=== PATIENT | male | born 1940 | race Hispanic/Latino ===

== ENCOUNTER 2019-12-06 14:00 | Outpatient (CLI) | payer MEDICARE, MEDICAID ==
--- NOTE | 2019-12-06 14:28 | ULT ---
ULTRASOUND DOPPLER DUPLEX VENOUS LEFT LOWER EXTREMITY: DATE: 12/06/2019 HISTORY: Left lower extremity pain and swelling in 79-year-old male TECHNIQUE: Grayscale, color-flow, and spectral analysis, of major veins of left lower extremity. FINDINGS: There is demonstration of blood flow with normal compressibility, of the left common femoral, profund a femoral, greater saphenous, femoral, popliteal, and posterior tibial, veins. There is edema in the soft tissues of the distal calf and ankle. IMPRESSION: 1. Soft tissue edema at distal left leg. 2. No deep venous thrombosis of left lower extremity.
== END 2019-12-06 14:01 | disposition home or self-care (01) ==
LOC: BICULT 14:00
PROVIDERS: ATTEND Family Medicine
DX: M79.605 Pain in left leg (principal); M79.89 Other specified soft tissue disorders
CPT/HCPCS: 36415; 80053; 84550; 85025; 86140

== ENCOUNTER 2020-03-29 11:35 | Inpatient (IN) | payer MEDICARE, MEDICAID ==
[2020-03-29 12:50] LABS: Hemoglobin 15.4 g/dL (14.0-18.0); Mean Corpuscular HGB CONC 33.7 g/dL (32.0-36.0); Mean Corpuscular Volume 97.8 fL (78.0-98.0); Mean Platelet Volume 7.6 fL (7.4-10.4); Platelet Count 129 thou/uL (130-400); RBC Distribution Width 12.5 % (11.5-14.5); Red Blood Cell (RBC) Count 4.66 mill/uL (4.70-6.10); White Blood Cell (WBC) Count 5.1 thou/uL (4.8-10.8)
[2020-03-29] MEDS ORDERED: Morphine 4 MG/ML VIAL ONE (12:54)
[2020-03-29] MEDS ORDERED: Ondansetron PF 4 MG/2 ML Vial ONE (12:54)
[2020-03-29 13:12] LABS: ALT (SGPT) 295 U/L (8-55); AST (SGOT) 359 U/L (5-34); Alkaline Phosphatase 124 U/L (40-110); Anion Gap 15 mmol/L (10-20); BUN (Urea Nitrogen) 19 mg/dL (8.4-25.7); Bilirubin, Total 2.6 mg/dL (0.2-1.2); Calc. Creatinine Clearance 0 mL/min (70-130); Calcium 8.3 mg/dL (7.8-10.44); Carbon Dioxide 24 mmol/L (23-31); Chloride 102 mmol/L (98-107); Globulin 3.4 g/dL (2.4-3.5); Glucose 121 mg/dL (83-110); Potassium 4.4 mmol/L (3.5-5.1); Protein, Total 7.4 g/dL (5.8-8.1); Sodium 137 mmol/L (136-145)
[2020-03-29 13:21] LABS: Band 21 % (5-11); Lymphocytes 11 % (21-51); MDiff Complete? YES; Monocytes 19 % (0-10); Neutrophil 48 % (42-75); Platelet Morphology Comment Appears Decreased; RBC Morphology Normal
[2020-03-29 13:25] LABS: Lipase 4953 U/L (8-78)
--- NOTE | 2020-03-29 13:38 | CT ---
CT OF THE ABDOMEN AND PELVIS WITH IV CONTRAST INDICATION: Epigastric abdominal pain COMPARISON: None FINDINGS: ABDOMEN: Lung bases: Bibasilar atelectasis small hiatal hernia. Fluid in the distal esophagus appears Liver: No focal lesion. Gallbladder: Wall thickening and mucosal enhancement of the gallbladder. Pancreas: Normal. Adrenal glands: Normal. Spleen: Normal. Kidneys and ureters: Normal. No hydronephrosis. Vasculature: There are mild vascular calcifications seen involving the visualized vasculature. Lymph nodes:No lymphadenopathy. Free fluid in abdomen:No free fluid is evident. PELVIS: Small and large bowel: Normal Appendix:Normal Bladder: Normal. Rectal and perirectal soft tissues:Normal. Reproductive structures: Prostate enlargement Free fluid in pelvis: No free fluid is evident. Lymphadenopathy pelvis: No lymphadenopathy is evident. Osseous structures: There is diffuse osteopenia. There is mild levoscoliosis of the lumbar spine. Th ere is scattered degenerative and osteoarthritic changes. Soft tissues:Normal. IMPRESSION: 1. Wall thickening and mucosal enhancement the gallbladder is suspicious for acute cholecystitis. Rec ommend right upper quadrant ultrasound for further evaluation. 2. Fluid in the distal esophagus may reflect dysmotility or reflux. Small hiatal hernia. 3. Prostate enlargement
--- NOTE | 2020-03-29 14:16 | ULT ---
Sonogram right upper quadrant HISTORY: Nausea. Right upper quadrant pain. FINDINGS: Shadowing stones within the dependent portion of the gallbladder lumen. Wall is thickened. Fluid adjacent to the thickened gallbladder wall. Patient was reportedly not tender over the gallbladder fossa at the time of the exam. Common duct is dilated at 0.9 cm. No focal liver abnormalities apparent. No free fluid in the abdomen. IMPRESSION : Cholelithiasis. Dilated common duct raises concern for central biliary obstruction. Radionucleotide h epatobiliary scan could be used to evaluate for biliary patency. Gallbladder wall thickening and small amount of pericholecystic fluid are nonspecific in the absence of positive sonographic العلي sign. Correlate for other findings of acute cholecystitis.
[2020-03-29] MEDS ORDERED: Piperacillin/Tazobactam 3.375 GM VIAL ONE (15:00)
[2020-03-29 15:28] LABS: Bacteria/HPF None Seen HPF (None Seen); Bilirubin 1+ (Negative); Blood, Urine Negative (Negative); Clarity Clear (Clear); Glucose, Urine (Dipstick) Normal (Negative); Ketone, Urine Negative (Negative); Leukocyte Negative Leu/uL (Negative); Nitrite Negative (Negative); Protein, Urine (Dipstick) 100 mg/dL (Neg-Trace); RBC/HPF 0-3 HPF (0-3); Specific Gravity, Urine 1.022 (1.002-1.036); Squamous Epithelial 0-3 HPF (0-3); WBC/HPF 0-3 HPF (0-3); pH, Urine 6.5 (5.0-9.0)
[2020-03-29] MEDS ORDERED: hydrALAZINE 20 MG/ML VIAL SLOW IVP PRN (15:36)
[2020-03-29] MEDS ORDERED: Morphine 4 MG/ML VIAL SLOW IVP PRN (15:36)
[2020-03-29] MEDS ORDERED: Morphine 2 MG/ML VIAL SLOW IVP PRN (15:36)
[2020-03-29] MEDS ORDERED: Ketorolac Tromethamine 30 MG/ML VIAL IVP PRN (15:41)
--- NOTE | 2020-03-29 16:35 | RAD ---
PORTABLE CHEST: 03/29/20 PROVIDED CLINICAL HISTORY: Generalized abdominal pain. FINDINGS: Comparison 12/13/14. Cardiac and mediastinal silhouette is within normal limits. Stable linear opacities of the right lung base likely reflecting scarring. Chronic displaced right clavicular fracture is redemonstrated. No f ocal consolidation, pleural fluid or pneumothorax apparent. No evidence for pneumoperitoneum. IMPRESSION: No evidence for an acute cardiopulmonary process. POS: VIVIEN
--- NOTE | 2020-03-29 16:43 | HP ---
HISTORY OF PRESENT ILLNESS: Jelani Bridges is an 79-year-old male patient, who presented to the emergency room with three days of upper abdominal pain, back radiation, nausea. He has been for the past year, having intermittent biliary type pains with epigastric right upper quadrant pain. In the emergency room, he had a gallbladder ultrasound revealing multiple gallstones, bile duct of 9 mm. His bilirubin, alkaline phosphatase, and transaminases were elevated. CAT scan of the abdomen and pelvis was also obtained revealing pericholecystic fluid and no other remarkable findings. ALLERGIES: NONE. SOCIAL HISTORY: Tobacco, none. Alcohol, none. MEDICATIONS: None routinely. PAST SURGICAL HISTORY: Left inguinal hernia repair. PAST MEDICAL HISTORY: None contributory. FAMILY HISTORY: Noncontributory. REVIEW OF SYSTEMS: Noncontributory. PHYSICAL EXAMINATION: GENERAL: Blood pressure 120/68, respiratory rate 18, heart rate 78. HEAD, EARS, EYES, NOSE AND THROAT: Unremarkable. Sclerae nonicteric. LUNGS: Clear to auscultation. CARDIAC: Regular rate and rhythm without murmur or gallop. ABDOMEN: Soft, tenderness in right upper quadrant. Mild guarding. EXTREMITIES: Unremarkable. ASSESSMENT AND PLAN: Biliary pancreatitis. The patient on his CAT scan had mild prostate enlargement, small hiatal hernia. He does not give a history of reflux. Plan at this time is for IV fluid hydration, n.p.o., IV antibiotics. Repeat his laboratories in the morning. Plan laparoscopic video cholecystectomy, possible cholangiograms and possible ERCP. Pending clinical course. Laboratories and cholangiograms in the morning. He understands risks and benefits procedure and consents have been obtained. Questions answered. The patient's daughter is present to translate for me. The patient's daughter states that her mother had the same procedure in the last year. Job ID: [id number]
[2020-03-29 17:53] VITALS: BMI 25.9
--- NOTE | 2020-03-29 18:58 | CON ---
DATE OF CONSULTATION: 03/29/2020 REASON FOR CONSULTATION: Biliary pancreatitis. HISTORY OF PRESENT ILLNESS: Mr. Bridges is an 79-year-old man who was brought to the ER by his daughter with a 3-day history of persistent upper abdominal pain. The pain is described as sharp and stabbing and has been unrelenting up until now. He does have some nausea, but without vomiting. There is no fever. There is no diarrhea. CT performed in the ER showed wall thickening of the gallbladder, suggestive of cholecystitis. Subsequent ultrasound showed cholelithiasis with common bile duct measuring 9 mm. His lipase was elevated at 4953. The patient is otherwise healthy without any antecedent gastrointestinal issue or history. PAST MEDICAL HISTORY: 1. Essentially healthy without any diabetes, hypertension, coronary artery disease, or lung problem. 2. Status post inguinal hernia repair a few years ago. ALLERGIES: NONE. MEDICATIONS AT HOME: No prescription medication. SOCIAL HISTORY: The patient is . Lives with his in [place]. He has no tobacco or alcohol usage. FAMILY HISTORY: Negative for any known GI problem, liver disease, or GI malignancy. REVIEW OF SYSTEMS: Ten-point review of systems did not show any other symptoms, not otherwise reported as above. PHYSICAL EXAMINATION: VITAL SIGNS: Temperature is 98.6, blood pressure 121/72, pulse of 88. GENERAL: He is alert without distress. HEENT: Anicteric sclerae. Oropharynx is clear and moist. CV: Normal S1 and S2. Regular rate and rhythm. CHEST: Breath sounds. ABDOMEN: Soft, mildly tender in the periumbilical and upper abdominal area. No guarding, tense, or rebound. He has active bowel sounds. EXTREMITIES: No edema. LABORATORY DATA: Electrolytes within normal range. Creatinine 1.62, bilirubin 2.6, AST 359, ALT 295, alkaline phosphatase 124, and lipase 4953. WBCs 5.1, hemoglobin 15.4, and platelet count 129. ASSESSMENT: Biliary pancreatitis without any significant inflammatory changes on CT. The patient does have evidence of cholecystitis on CT. Ultrasound showed a common duct 9 mm with elevation of liver profile, suggestive of choledocholithiasis. RECOMMENDATIONS: We will monitor his labs in the morning. If there is trending downward of his liver profile, then cholecystectomy can be proceed with intraoperative cholangiogram. However, if the LFTs are more elevated, we will perform a preoperative ERCP with papillotomy and stone extraction to clear the duct. Indication including risk not limited to bleeding, perforation, pancreatitis, or side effects to medications were discussed with Mr. Bridges and his daughter. All questions answered. Job ID: [id number]
[2020-03-29] MEDS: Lactated Ringer's 1,000 ML IV SCH ×2 (20:18→22:15)
[2020-03-29] MEDS: Famotidine/PF 20 mg/2ml Vial SLOW IVP SCH (20:19)
[2020-03-29] MEDS ORDERED: Enoxaparin Sodium 40 MG/0.4 ML SYRINGE SC SCH (21:00)
[2020-03-30] MEDS: Lactated Ringer's 1,000 ML IV SCH (05:10)
[2020-03-30 05:56] LABS: SARS-CoV-2 MS2 Positive; SARS-CoV-2 by NAA DETECTED (NotDetected); SARS-CoV-2 orf1ab Positive
[2020-03-30 06:31] LABS: ALT (SGPT) 229 U/L (8-55); AST (SGOT) 183 U/L (5-34); Albumin 3.6 g/dL (3.4-4.8); Alkaline Phosphatase 128 U/L (40-110); Anion Gap 14 mmol/L (10-20); BUN (Urea Nitrogen) 19 mg/dL (8.4-25.7); Calc. Creatinine Clearance 41 mL/min (70-130); Calcium 7.9 mg/dL (7.8-10.44); Carbon Dioxide 22 mmol/L (23-31); Chloride 103 mmol/L (98-107); Globulin 3.1 g/dL (2.4-3.5); Glucose 76 mg/dL (83-110); Lipase 586 U/L (8-78); Potassium 4.1 mmol/L (3.5-5.1); Protein, Total 6.7 g/dL (5.8-8.1); Sodium 135 mmol/L (136-145)
[2020-03-30 07:00] LABS: Hemoglobin 15.3 g/dL (14.0-18.0); Mean Corpuscular HGB CONC 32.4 g/dL (32.0-36.0); Mean Corpuscular Volume 98.9 fL (78.0-98.0); RBC Distribution Width 12.9 % (11.5-14.5); Red Blood Cell (RBC) Count 4.78 mill/uL (4.70-6.10)
[2020-03-30 08:19] LABS: Band 33 % (5-11); Lymphocytes 20 % (21-51); MDiff Complete? YES; Mean Platelet Volume 8.3 fL (7.4-10.4); Monocytes 17 % (0-10); Neutrophil 30 % (42-75); Platelet Count 104 thou/uL (130-400); Platelet Morphology Comment Appears Decreased; White Blood Cell (WBC) Count 3.6 thou/uL (4.8-10.8)
[2020-03-30] MEDS: Famotidine/PF 20 mg/2ml Vial SLOW IVP SCH (08:38)
[2020-03-30] MEDS ORDERED: Lidocaine 1% PF 5 ML VIAL ONE (10:23)
[2020-03-30] MEDS ORDERED: Dexamethasone 20 MG/5 ML VIAL ONE (10:23)
[2020-03-30] MEDS ORDERED: Succinylcholine 200 MG/10 ml SYRINGE FS ONE (10:23)
[2020-03-30] MEDS ORDERED: PROPOFOL 200 MG/20 ML VIAL ONE (10:23)
[2020-03-30] MEDS ORDERED: Rocuronium Bromide 10 MG/ML (10ML VIAL) ONE (10:23)
[2020-03-30] MEDS ORDERED: Ondansetron PF 4 MG/2 ML Vial ONE (10:23)
[2020-03-30] MEDS ORDERED: Bupivacaine PF 0.5% 30 ML VIAL ONE (11:38)
[2020-03-30] MEDS ORDERED: Iothalamate Meglumine 60% 50 ML VIAL FS ONE (11:38)
[2020-03-30] MEDS ORDERED: Lidocaine 1% w/Epinephrine 1:100K 20 ML VIAL ONE (11:38)
[2020-03-30] MEDS ORDERED: Fentanyl 100 MCG/2 ML VIAL ONE (12:23)
[2020-03-30 12:25] LABS: SARS-CoV-2 N Gene Positive; SARS-CoV-2 S Gene Negative
--- NOTE | 2020-03-30 12:35 | PRG ---
DATE OF SERVICE: 03/30/2020 SUBJECTIVE: Mr. Bridges is doing better today. He has minimal pain. OBJECTIVE: VITAL SIGNS: 98.5 degrees, 62, 132/82. LABORATORY DATA: His laboratories this morning revealed that his white count is 3, hemoglobin 15. His bilirubin has fallen from 2.6 to 1.0. Transaminases better. Lipase improved to 586, down from 4953. ASSESSMENT: He denies having any pain. I have discussed with Dr. Eaton. Plan laparoscopic cholecystectomy and cholangiograms and hopefully can avoid ERCP. Patient's procedural screening has revealed COVID positive, although he denies any COVID symptoms, and denies having any COVID symptoms in the past. PLAN: Laparoscopic cholecystectomy today, cholangiograms, possible discharge home later today. Job ID: [id number]
[2020-03-30] MEDS ORDERED: Ibuprofen 600 MG TAB PO PRN (13:48)
[2020-03-30] MEDS ORDERED: Acetaminophen 500 MG TAB PO PRN (13:48)
[2020-03-30] MEDS ORDERED: traMADol HCl 50 MG TAB PO PRN (13:48)
--- NOTE | 2020-03-30 13:48 | RAD ---
EXAM: XR Cholangiogram in Surgery DATE: 03/30/2020 12:05 PM INDICATION: Intraoperative cholangiogram COMPARISON: None. FINDING: The 2 submitted fluoroscopic images demonstrate antegrade opacification of the biliary syst em through the cystic duct remnant. No intraluminal filling defect is evident to suggest retained stone. There is some retrograde opacification of the main pancreatic duct as well as the proximal int rahepatic ducts. There is extension of contrast into the duodenum. IMPRESSION:No evidence of retained bile duct stone.
--- NOTE | 2020-03-30 14:26 | DIS ---
DATE OF ADMISSION: 03/29/2020 DATE OF DISCHARGE: 03/30/2020 DISCHARGE DIAGNOSES: Biliary pancreatitis; cholelithiasis; preprocedure screening, COVID positive, although asymptomatic. PROCEDURES IN THIS HOSPITALIZATION: CT scan of the abdomen and pelvis, ultrasound of the gallbladder revealing gallstone, dilated bile duct. Liver function test elevated, suggestive of choledocholithiasis. Changes of pancreatitis noted on the CAT scan. Laparoscopic video cholecystectomy performed on 03/30/2020, along with cholangiogram. Fluoroscopy negative. No filling defects. No need for ERCP. Note, preprocedural screening, positive COVID. HISTORY: Jelani Bridges is an 79-year-old male without symptoms of COVID, presents with biliary pancreatitis, admitted, hydrated, given intravenous antibiotics, taken to the operating room next day for laparoscopic cholecystectomy, cholangiograms, revealing no evidence of choledocholithiasis. Dr. Eaton had been consulted. ERCP was not necessary. Preprocedure screen, COVID positive, although asymptomatic and afebrile. The patient's bilirubin on admission 2.6, on discharge 1.0. An 79-year-old male patient, Chinese-speaking only, accompanied by his daughter. The patient has had biliary symptoms for the past year, more severe in the last 3 days. Admission laboratories and radiological imaging suggested biliary pancreatitis. The patient was hospitalized overnight, taken to the operating room for laparoscopic cholecystectomy, cholangiograms, which were normal without choledocholithiasis. Postoperatively, the patient discharged home. Follow up in my office in 1 to 2 weeks. Tylenol, Advil [id number] as needed. Tramadol prescription #25 given, to take as needed, refill one. Diet and activity as tolerated. No lifting or eating restrictions. Job ID: [id number]
[2020-03-30 15:52] VITALS: BP 162/90; TEMP 97.7
--- NOTE | 2020-04-01 08:20 | OP ---
DATE OF PROCEDURE: 03/30/2020 PREOPERATIVE DIAGNOSES: Biliary pancreatitis, cholelithiasis, cholecystitis. POSTOPERATIVE DIAGNOSES: Biliary pancreatitis, cholelithiasis, cholecystitis. PROCEDURES PERFORMED: Laparoscopic video cholecystectomy, negative intraoperative cholangiogram. Fluoroscopy used. ANESTHESIA: General, local 0.5% Marcaine 30 mL mixed with 1% Xylocaine with epinephrine 20 mL. DESCRIPTION OF PROCEDURE: The patient was taken to the operating room, where under general anesthesia, abdomen was clipped of hair, prepared with ChloraPrep and draped in routine fashion. Local anesthetic mixture was infiltrated in skin and subcutaneous tissue about all port sites. Infraumbilical incision made, pneumoperitoneum to 15 mmHg obtained with Veress needle, replaced with a 5 port, video laparoscope inserted. Right subxiphoid incision made and 11 port placed. Right subcostal incision made in midclavicular anterior axillary line and 5 port placed. There were some adhesions near the gallbladder. Liver edge and abdominal wall taken down with sharp hot cautery. Good hemostasis noted. Fundus of the gallbladder grasped and retracted cephalad. Liver appeared to be normal. Infundibulum grasped and retracted laterally. The gallbladder was slightly inflamed and edematous. The inflammatory adhesions were taken down. Cystic artery and duct identified. Cystic artery doubly clipped proximally. Cystic duct singly clipped on the gallbladder side. Opening made in the cystic duct. Cholangiocatheter inserted and cholangiogram was obtained using fluoroscopy, revealed free flow of contrast into the duodenum without filling defects and the dilated common hepatic, common bile, left and right hepatic ducts. Cholangiocatheter removed. Cystic duct stump and artery doubly clipped and divided. Gallbladder dissected free, obtaining good hemostasis prior to division of final peritoneal attachments. Gallbladder and multiple small stones removed. Hemostasis ensured with cautery. Irrigant and pneumoperitoneum evacuated. All instruments were removed. All skin incisions approximated with interrupted subdermal 4-0 Monocryl, and [place] glue was applied after subxiphoid fascia approximated with [id number] suture of 0 Vicryl. The patient tolerated the procedure well and will be discharged home after this operation. Job ID: [id number]
--- NOTE | 2020-04-05 14:50 | PRG ---
DATE OF SERVICE: 03/30/2020 ADDENDUM: Jelani Bridges did well, recovering pancreatitis sooner than expected and was able to have his cholecystectomy and cholangiograms and be discharged home postoperatively same day after his surgery. He had a quicker than usual recovery allowing earlier discharge from the hospital. Job ID: [id number]
== END 2020-03-30 19:55 | disposition home or self-care (01) | DRG 417 ==
LOC: ERS 11:35 → SURG B 15:36
PROVIDERS: ADMIT Specialist; ATTEND Specialist
PROC: 0FT44ZZ Resection of Gallbladder, Percutaneous Endoscopic Approach (ICD-10-PCS; principal; 2020-03-30)
PROC: BF101ZZ Fluoroscopy of Bile Ducts using Low Osmolar Contrast (ICD-10-PCS; 2020-03-30)
DX: K80.00 Calculus of gallbladder with acute cholecystitis without obstruction (principal); K85.10 Biliary acute pancreatitis without necrosis or infection; U07.1 COVID-19; K44.9 Diaphragmatic hernia without obstruction or gangrene; N40.0 Benign prostatic hyperplasia without lower urinary tract symptoms; Z90.49 Acquired absence of other specified parts of digestive tract
CPT/HCPCS: 36415; 47532; 71045; 74177; 76705; 80053; 81003; 81015; 82150; 83690; 84484; 85025; 87635; 88304; 93005; 96365; 96375; J1100; J1650; J1956; J2270; J2405; J2543; J2704; J3010; S0020; S0028; U0003

== ENCOUNTER 2023-01-09 14:40 | Emergency (ER) | payer MEDICARE, MEDICAID ==
[2023-01-09 15:32] LABS: #Eosinphils 0.3 thou/uL (0.0-0.7); #Monocytes 0.6 thou/uL (0.11-0.59); #Neutrophils 3.2 thou/uL (1.40-6.50); %Basophils 0.6 % (0.0-1.0); %Eosinophils 4.6 % (0.0-10.0); %Lymphocytes 24.7 % (21.0-51.0); %Monocytes 10.6 % (0.0-10.0); %Neutrophils 59.3 % (42.0-75.0); Hematocrit 44.8 % (42.0-52.0); Hemoglobin 15.3 g/dL (14.0-18.0); Mean Corpuscular HGB CONC 34.2 g/dL (32.0-36.0); Mean Corpuscular Hemoglobin 33.1 pg (27.0-31.0); Mean Platelet Volume 9.6 fL (7.4-10.4); Platelet Count 192 10x3/uL (130-400); RBC Distribution Width 13.1 % (11.5-14.5); Red Blood Cell (RBC) Count 4.62 mill/uL (4.70-6.10); White Blood Cell (WBC) Count 5.4 10x3/uL (4.8-10.8)
[2023-01-09 16:06] LABS: Troponin I 0.113 ng/mL (< 0.028)
[2023-01-09 16:09] LABS: ALT (SGPT) 19 U/L (8-55); AST (SGOT) 25 U/L (5-34); Albumin 4.1 g/dL (3.4-4.8); Alkaline Phosphatase 63 U/L (40-110); Anion Gap 15 mmol/L (10-20); BUN (Urea Nitrogen) 18 mg/dL (8.4-25.7); Bilirubin, Total 0.4 mg/dL (0.2-1.2); Calc. Creatinine Clearance 0 mL/min (70-130); Calcium 8.9 mg/dL (7.8-10.44); Carbon Dioxide 17 mmol/L (23-31); Chloride 110 mmol/L (98-107); Estimated GFR 52; Globulin 3.8 g/dL (2.4-3.5); Glucose 98 mg/dL (83-110); Lipase 49 U/L (8-78); Potassium 4.7 mmol/L (3.5-5.1); Protein, Total 7.9 g/dL (5.8-8.1); Sodium 137 mmol/L (136-145)
[2023-01-09] MEDS ORDERED: Calcium Carbonate 500 MG ChewTAB PO PRN (17:38)
[2023-01-09] MEDS ORDERED: Acetaminophen 325 MG TAB PO PRN (17:38)
[2023-01-09] MEDS ORDERED: Ondansetron ODT 4 MG TAB PO PRN (17:38)
[2023-01-09] MEDS ORDERED: Senokot S 8.6-50 MG TAB PO PRN (17:38)
[2023-01-09] MEDS ORDERED: Ondansetron PF 4 MG/2 ML Vial IVP PRN (17:38)
[2023-01-09] MEDS ORDERED: Nitroglycerin 0.4 MG TAB (25 Tab Bottle) SL PRN (17:43)
[2023-01-09] MEDS ORDERED: Aspirin 81 mg Enteric Coated Tablet ONE (17:48)
[2023-01-09] MEDS ORDERED: Aspirin Chewable 81 MG TAB ONE (17:48)
[2023-01-09 18:50] LABS: Troponin I 0.108 ng/mL (< 0.028)
[2023-01-09] MEDS ORDERED: Nitroglycerin 2% Ointment 1 INCH/1 GM Packet TOP SCH (20:00)
[2023-01-09] MEDS ORDERED: Metoprolol Tartrate 25 MG TAB PO SCH (21:00)
[2023-01-09] MEDS ORDERED: Cyanocobalamin (Vitamin B-12) 1,000 MCG TAB PO SCH (21:00)
[2023-01-09] MEDS ORDERED: Folic Acid 1 MG TAB PO SCH (21:00)
[2023-01-09] MEDS ORDERED: Famotidine 20 MG TAB PO SCH (21:00)
[2023-01-09] MEDS ORDERED: Multivit, Therapeutic 1 TAB PO SCH (21:00)
[2023-01-10] MEDS ORDERED: Aspirin 325 mg Enteric Coated Tablet PO SCH (09:00)
== END 2023-01-09 18:09 | disposition left against medical advice (07) ==
LOC: ERS 14:40
DX: I21.4 Non-ST elevation (NSTEMI) myocardial infarction (principal); Z00.00 Encounter for general adult medical examination without abnormal findings; Z12.5 Encounter for screening for malignant neoplasm of prostate; Z13.1 Encounter for screening for diabetes mellitus; Z13.6 Encounter for screening for cardiovascular disorders; I25.118 Atherosclerotic heart disease of native coronary artery with other forms of angina pectoris; Z79.899 Other long term (current) drug therapy
CPT/HCPCS: 71045; 80053 ×2; 80061; 83036; 83690; 83880; 84484 ×2; 85025 ×2; 93005; 94760; 96372; 99285; G0103; 36415; J1650